=== PATIENT | female | born 1995 | race Caucasian/White ===

== ENCOUNTER 2024-11-25 20:22 | Emergency (ER) | payer OTHER, SELFPAY ==
--- OUTSIDE RECORDS SUMMARY | 2024-11-25 20:24 | XMS_ITS | Encounter Summary ---
Author Organization [facility] Address [address] [place] [address] Care Team Providers Care Cut Off Machine Helper Name Role Phone Zane Bower D.O. Primary Care Provider None, None M.D. Unavailable Unavailable Pcp, Relocated M.D. Primary Care Provider Brit amezquita Encounter Details Date Type Department Care Team (Late st Contact Info) Description 12/26/2015 Form Completion [facility] [address] [facility] [address] [place], [place] [address] Lynnette Bruner, N.P. [address] [facility] [address] [place], [place] [id number] Social History Tobacco Use Types Packs/Day Years Used Date Smoking Tobacco: Former Cigarettes 0.2 1 Alcohol Use Standard Drinks/Week Comments Yes 0.8 (1 standard drink = 0.6 oz p ure alcohol) occ Comments No Sex and Gender Information Value Date Recorded Sex Assigned at Not on file Legal Sex Female 5:03 AM CDT Gender Identity Not on file Sexual Orientation Not on file documented as of this encounter Functional Status * Is patient deaf or have serious difficulty hearing? Answer Date of Assessment Author Status No 11/18/2015 12:00 AM Broderick Summers Active * Is patient blind or have serious difficulty seeing, even when wearing glasses? Answer Date of Assessment Author Status No 11/18/2015 12:00 AM Broderick Summers Active * Does patient have difficulty walking or climbing stairs? Answer Date of Assessment Author Status No 11/18/2015 12:00 AM Broderick Summers Active * Does patient have difficulty dressing or bathing? Answer Date of Assessment Author Status No 11/18/2015 12:00 AM Broderick Summers Active * Does patient have difficulty doing errands alone? Answer Date of Assessment Author Status No 11/18/2015 12:00 AM Broderick Summers Active documented as of this encounter Mental Status * Does patient have serious difficulty concentrating, remembering, or making decisions? Answer Entry Date Author Status No 11/18/2015 12:00 AM Broderick Summers Active documented in this encounter Plan of Treatment Not on file documented as of this encounter Visit Diagnoses Not on filedocumented in this encounter Care Teams Cut Off Machine Helper Relationship Specialty Start Date End Date Zane Bower D.O. PCP - General Family Medicine 10/04/15 06/09/17 Kamaljit Casillas M.D. PCP - General 06/10/17 None, Yolanda Dietrich 08/21/15 documented as of this encounter
--- OUTSIDE RECORDS SUMMARY | 2024-11-25 20:24 | XMS_ITS | Encounter Summary ---
Author Organization [facility] Address [address] [place] [address] Care Team Providers Care Lgsw Name Role Phone Leslee Stacy PA-C Unavailable Glendy Perry MD Unavailable Eli Marinelli MD Primary Care Provider [phone] Reason for Visit * Reason Comments Follow up Encounter Details Date Type Department Care Team (Late st Contact Info) Description 11/19/2024 3:00 PM DRYCLEANER Office Visit [facility] [address] [phone] Glendy Perry MD [address] [place] [id number] Multiple sclerosis (HCC) (Primary Dx) Social History Tobacco Use Types Packs/Day Years Used Date Smoking Tobacco: Some Days Cigarettes 0.3 9 Started: 013; Last attempted to quit: 11/10/2021 E - Cigarettes Smokeless Tobacco: Never Tobacco Cessation:Ready to Q uit: Yes; Counseling Given: Yes Alcohol Use Standard Drinks/Week Comments Yes 1 (1 standard drink = 0.6 oz pur e alcohol) Comments Unknown Sex and Gender Information Value Date Recorded Sex Assigned at Female 11/30/2021 10:02 AM DRYCLEANER Legal Sex Female 9:11 AM DRYCLEANER Gender Identity Female 11/30/2021 10:02 AM DRYCLEANER Sexual Orientation Straight 11/30/2021 10 :02 AM DRYCLEANER documented as of this encounter Last Filed Vital Signs Vital Sign Reading Time Taken Comments Blood Pressure 96/61 11/19/2024 3:09 PM DRYCLEANER Pulse 76 11/19/2024 3:09 PM DRYCLEANER Temperature - - Respiratory Rate - - Oxygen Saturation - - Inhaled Oxygen Concentration - - Weight - - Height - - Body Mass Index - - documented in this encounter Patient Instructions * Patient Instructions* Glendy Perry MD - 11/19/2024 3:00 PM DRYCLEANER .Follow up: Keep January New Medications/changes: Stop Lyrica - decrease by 75mg every 3 days Hold Migraine meds Okay to continue cyclobenzaprine and Cymbalta for now - ask Ob - Referrals: Breast feeding data handout https://www.ncbi.nlm.nih.gov/books/REP019524/pdf/Bookshelf_NBK500903.pdf Other Recommendations: Regular exercise and healthy diet are important and recommended for MS patients. Please keep up on your routine preventative care with your primary care physician including cancer screenings and vaccinations. While vaccination is recommended it is not required. MS patients shouldnot received live vaccines. Cigarette smoking is known to worsen disease course/outcomes of MS and can increase your risk of relapse. If you do smoke, please consider quitting/reducing use. LEANER documented in this encounter Progress Notes * Glendy Perry MD - 11/19/2024 3:00 PM CST In the interval since her last visit, labs completed 07/07/24. Infused with Ocrevus 07/24/24, tolerated well. MRI B/C/T completed 08/21/24, MS stable. Followed with [facility] 10/23/24 for evalof cough and sinus problem, advised bronchitis, given doxycycline, flonase, tessalon, albuterol, nebulizer treatment, codeine, and dexamethasone to treat infection. Sent portal ms 11/17/23 to report positive home test, thought to be from abx given for bronchitis, advised visit to discuss, per Dr. Perry pt could decrease Lyrica dose by 75 mg over days leading up to office visit. Advised speak to PCP/OBGYN. Today, would like to discuss . Reports has not seen PCP/Ob just positivehome tests. Was most concerned about her MS. Was taking Lyrica total 225 ( 75 at dinner and 150 at night) has decreased by 75mg since phone call. Reports no new concerns related to MS. Chronic Symptoms Memory - Some short term memory concerns. Prior Concerta but side effects of jitteriness/decreased appetite Mood - Anxiety and depression. Vision - Still impaired vision in right eye (very blurry) since diagnosis. Weakness/Mobility - Feels walking is unlimited. Intermittent right leg weakness. Pain/Abnormal Sensations - Numbness/tingling in hands and feet. Numbness in legs at night. Entire right leg numbness that fluctuates during the day and with activity (worse with prolonged standing). Fatigue/Energy - Fatigue throughout the day. Difficulty falling asleep. Bladder - No concerns Bowel - No concerns Other Headaches/migraines - Her headaches are unilateral with associated nausea, photophobia and phonophobia. At baseline, has chronic daily headache with 4-5 more severe headaches a month. Unable to use triptans (patient tried Sumatriptan once and collapsed, has history of mirna parkinson white syndrome). Has tried Topamax but was not effective (was on 75mg daily) and nortriptyline but had side effects of emotional lability. Historically would take Prednisone 50mg for 4 days when she would get a badheadache - was needing this about once a month. 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 Lastevaluated by Cardiology in 2016. Right knee pain and ankle pain - was evaluated by rheumatology. Hx of seizures - Triggered by exhaustion and stress. Now well controlled with controlling triggers.Uses cannabis with improvement. No longer on medications, stopped at age 21. First seizure at age 12. Patients states much better controlled now. In late teens/early twenties got more seizures but was also using drugs/alcohol and not controlling triggers. Patient aware of [place] Law to not drive for 90days following a seizure. Reports for the past several years seizures always occur at bedtime and can tell when she is going to get one (due to not controlling triggers). WATSON EVENTS IN DISEASE HISTORY - with youngest son. Was having siatica and vision changes/blurry vision and needed to start wearing glasses. 08/2015 - Presented to [facility] ED 08/21/15 for severe headache with light and sound sensitivity, tunnel vision/vision changes admitted for further evaluation, head CT done 08/21/15, normal. Started initially on Rocephin and Doxycycline, CSF done 08/21/15 with Glucose 51, Protein 46 (H) and Lyme neg, Abx were stopped. Was given Toradol and Percocet for pain and Toradol wad discontinued due to neutropenia, mild thrombocytopenia and anemia and restarted after CBC count improved. Due to headache persisting suspected post LP MITCHELL, patient refused blood patch. Believed to have aseptic meningitis, wasdischarged 08/24/15. 09/2015 - Presented to ED 09/26/15 for headache with near syncopal episode at work, as well as paresthesias in her upper extremities, head CT done 09/26/15, normal. Admitted to hospital. Brain MRI done 09/27/15 showing enhancing 6 mm lesion abutting the left lateral ventricle, most likely representing a demyelinating process, labs were negative, patient was advised to follow with outpatient neurology. 10/2015 - Consulted with Dr. Elsy Burr 10/12/15 for eval of neurological sxs, MRI done 10/13/15, showing dextrocurature of the thoracic spine, otherwise unremarkable. A second CSF was done 10/18/15 with IgG index 0.59 and 8 oligoclonal bands. Followed with HIGINIO Bruner 11/01/15 reporting ongoing f rontal daily headaches, right arm paresthesia and right leg cramping with gait dysfunction. Diagnosed with MS. Started on 3 days of IV steroids with prednisone taper. 11/2015 - Followed with HIGINIO Bruner 12/06/15 reported no change in ongoing sxs. Did try Aubagio and Tecfidera (for about 5 days each) but had severe nausea/vomiting. After having side effects, discontinued DMT and chose to observe. 2015 - 2018 - Did follow up yearly. Had ongoing fatigue and migraines/headaches. 12/2018 - Consulted with Dr. Carlos A Wallace 12/17/18 for MS eval. At time of visit reported fatigue and daily headaches, started on nortriptyline showing no improvement. Also reported urinary urgency.MRI done 12/22/18 showing 20 new brain lesions, at least 7 showing enhancement, cervical and thoracic spine remain normal. Followed with Dr. Wallace 12/28/18, discussed DMT, migraine preventative waschanged to Topaxmax, with no improvement. Started on Adderall for fatigue. 01/2019 - Started on Copaxone TIW. End of 2018 - Woke up and right leg was numb and weak. Received IV steroids. Symptoms improved. Still has some residual numbness. 02/2020 - MRI done 02/15/20 showing 1 new nonenhancing brain lesion within the right frontal subcortical white matter, cervical and thoracic spine remain normal. Followed with Dr. Wallace 02/22/20, reported fatigue, and some arm and leg weakness. Continued on Copaxone. 02/2021 - MRI done 03/03/21 showing 1 new nonenhancing brain lesion in the right superior frontal gyrus. Followed with Carrie Schroeder [facility] 03/09/21, continued on Copaxone. 11/2021 - Presented to [facility] ED 11/24/21 after testing positive for COVID with bilateral pulmonary embolisms with right heart strain discharged 11/26/21 with Xaralto. Presented to [facility] ED 11/30/21 forchest pain and SOB, reported bloody sputum when coughing, CT done showing clot burden has decreased, with increased bilateral pulmonary effusions. Discharged same day. 12/2021 - MRIs with new lesion on brain - started Tysabri - 03/2022 but concerns for side effects with infusions with nausea prior to infusions. Changed to Ocrevus 06/2022. MRis brain stable 09/2022 LABS 07/07/24 - B cells 0 (L). CBC w/ diff wnl. LFT wnl. Immunoglobulins wnl. 01/03/24 -. B cells 0 (L). CBC w/ diff w/ MCHC 31.2 (L). LFT w/ Alk Phos 37 (L). Immunoglobulins wnl. Vit D 33. 01/02/2024 - Ferritin 11 (L) 07/25/23 - [facility] - TSH 1.24. HIV 1/2 Ag/Ab nonreactive. HCV Ab nonreactive. 07/11/23 - [facility] - CBC w/ diff wnl. B cells 0 (L). LFT w/ Alk Phos 34 (L). Immunoglobulins wnl. 01/14/23 - [facility] - B cells 2 (L). CBC w/ diff wnl. LFT w/ Alk Phos 33 (L). Immunoglobulins wnl. 06/22/22 - Hep B Core Ab neg. Hep B Surface Ab nonreactive. Immunoglobulins wnl. HBsAg neg. 05/11/22 - CBC w/diff wnl, LFT with alk phos 40 03/23/22 - [facility] - CBC w/ diff w/ Hemoglobin 11.1 (L), MCHC 31.4 (L). Comp w/ Alk Phos 40 (L). 12/08/2021 - Immunoglobulins - IgM 241, (H), IgA 383 (H), Hep b core neg, Hep B surface ab neg, Hep B surface ag neg, Hep C neg, VZV immune, CBC with diff with elevated platelets 11/30/21 - [facility] - CBC w/ Hemoglobin 11.8 (L). BMP w/ BUN 6 (L). 08/26/21 - [facility] - CBC w/ diff w/ WBC 2.1 (L), Abs Lymph 1.0. Comp w/ Glucose 117 (H), Alk Phos 45(L). CRP 0.35. JCV Hx 05/16/22 - JCV neg 0.18 From Diagnosis/[facility] 12/17/18 - [facility] - Comp wnl. CBC w/ diff wnl. Lyme <0.9 neg. ALICE positive w/ titer 1:80 (H). DsDNAAb 1 neg. MASTER Ab neg. Sjogren's Ab neg. TSH 0.85. Vit B12 1919 (H). Vit D 56. NMO neg. 10/18/15 [facility] - CSF - WBC 3. RBC 2 (H). Glucose 53. Protein 21. IgG index 0.59. Oligoclonal bands8. Yazmin Salcedo not detected. Cytomegalovirus not detected. HSV not detected. VZV not detected. 10/13/15 - [facility] - Eastern Equine Enceph Ab 1.07 neg. [place] Encephalitis Ab 0.86 neg. West NileVirus neg. Marvin Encephalitis neg. JCV 0.10 neg. 08/21/15 - [facility] - CBC w/ diff w/ Abs Lymph 0.8 (L). Comp w/ Anion Gap 20.7 (H), Glucose 104 (H). 08/21/15 [facility] - CSF - WBC 7 (H). RBC 13 (H). Glucose 51. Protein 46 (H). Lyme neg. Gram neg. Culture no growth. IMAGING 08/21/24 MRI BRAIN [facility] CON COMPARISON: MRI 08/16/2023 Impression Findings compatible with intracranial demyelination given clinical diagnosis of multiple sclerosis.No evidence of interval disease activity. 1. T2 lesion burden: Mild, stable. 2. T1 lesion burden: Minimal, stable. 3. Lesion enhancement: None. 4. Volume loss: None. MRI SPINE CERVICAL [facility] CON COMPARISON: MRI 08/16/2023 Impression Normal appearance of the cervical spinal cord, no interval change. MRI SPINE THORACIC [facility] CON COMPARISON: MRI 08/16/2023 Impression Normal appearance of the thoracic spinal cord, no interval change. Report signed by Rodney Catherine MD 08/16/23 MRI BRAIN [facility] CON COMPARISON: 09/21/2022 Impression Scattered T2 hyperintense white matter lesions intracranially compatible with the provided diagnosis of multiple sclerosis, stable since the prior exam dated 09/21/2022. Observations include: 1. T2 Lesion [place]: Mild, stable. 2. T1 Lesion [place]: Minimal, stable. 3. Lesion Enhancement: None. 4. Parenchymal Loss: None. MRI SPINE CERVICAL [facility] CON COMPARISON: 12/20/2021. Impression 1. Normal cervical and upper thoracic spinal cord. Stable from the prior exam. MRI SPINE THORACIC [facility] CON COMPARISON: 12/20/2021 Impression 1. Normal thoracic spinal cord. Stable from the prior exam. 2. Mild thoracic spinal curvature without spondylosis or spinal stenosis. Stable. Signed by Magdy Goodwin M.D. 09/21/22 - MRI B stable MEDICATIONS Current Outpatient Medications: Medication Sig cholecalciferol, vitamin D3, 25 mcg, 1000 unit, 25 mcg (1,000 unit) oral tablet Take 2 tablets (50 mcg) by mouth once daily. cyclobenzaprine (FLEXERIL) 10 mg oral tablet Take 1 tablet (10 mg) by mouth at bedtime. diazePAM (VALIUM) 5 mg oral tablet Take one tablet 30 minutes prior to MRI. Take second tablet at time of MRI if needed. Will need a cdl truck driver. diazePAM (VALIUM) 5 mg oral tablet Take one tab 30 min prior to MRI and may take 2nd tab at time ofMRI if needed DULoxetine (CYMBALTA) 60 mg oral delayed release capsule Take 1 capsule by mouth once daily ferrous sulfate (FERATAB) 325 mg (65 mg iron) oral tablet Take 1 tablet (325 mg) by mouth once daily. fremanezumab-vfrm (One Kings LaneOVY AUTOINJECTOR) 225 mg/1.5 mL SubQ AtIn INJECT 1 PEN UNDER THE SKIN EVERY MONTH LORazepam (ATIVAN) 0.5 mg oral tablet Take 1 tablet (0.5 mg) by mouth at bedtime as needed. ondansetron (ZOFRAN) 8 mg oral ODT Dissolve 1 tablet (8 mg) in mouth every 12 (twelve) hours as needed. pregabalin (LYRICA) 25 mg oral capsule Take one capsule twice daily. May take one additional capsule as needed. Take in addition to the 75mg capsules. Max dose in 24 hours 300mg. pregabalin (LYRICA) 75 mg oral capsule TAKE 1 CAPSULE BY MOUTH THREE TIMES DAILY (Patient not taking: Reported on 11/19/2024) prochlorperazine (COMPAZINE) 10 mg oral tablet TAKE 1 TABLET BY MOUTH EVERY 6 HOURS NEEDED . DO NOT EXCEED 4 PER 24 HOURS ubrogepant 100 mg oral Tab Take one tab at onset of migraine. May repeat once after 2 hours as needed. 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 GENERAL EXAM General: Patient in no acute distress. Cardiovascular: Bilateral lower extremities with no edema. Distal pulses palpable. Respiratory: Breathing non labored. NEUROLOGICAL EXAM BP 96/61 Pulse 76 Mental Status: Alert and orientated. Able to provide detailed medical history. Language is fluent. Speech without dysarthria. Cranial Nerves: Extraocular movements are full without nystagmus. Pupils are equal round and reactive to light. (Deferred due to facemask - Face is symmetric with full sensation bilaterally. Tongue is midline and palate elevates symmetrically.) Shoulder shrug is 5/5 bilaterally. Neck flexion does not illicit abnormal sensation. Motor: Muscle bulk and tone are normal. Strength to confrontational testing is 5/5 in bilaterally upper and lower extremities both proximally and distally. Reflexes: Biceps 2/2, Brachioradialis 2/2, Patella 2/2 (no crossed adductor seen) Coordination: No dysmetria on finger nose finger testing, rapid alternating movements of normal speed and rhythm, fast finger tapping of normal speed and amplitude. Sensation: Intact to light touch in upper or lower extremities. Vibration at R knee <5 seconds. Intact at left great toe. Gait: Able to stand from seated position without assistance. Does not use walking aid. Able to walkon toes and heels. Able to walk in tandem without difficulty. 25 foot timed walk 5.73 seconds on 11/19/24 5.54 seconds on 07/07/24 4.72 seconds on 01/03/24 5.34 seconds on 09/21/22 5.77 seconds on 05/07/22 ASSESSMENT AND PLAN Primitivo Killian is a 29 y.o. female with history of MS diagnosed in 2014, on Ocrevus dosed in 06/2022 after nausea with Tysabri (completed 4 infusions total). Was started on Tysabri due to progression onMRIs while on Copaxone. Was on Copaxone from 2018 - 2021 but with new lesions in 02/2020, 02/2021, and 12/2021. Prior failures of Aubagio and Tecfidera as was not able to tolerate medications and discontinued after a few days. Today, reports overall Ms disease process stable but now with new pregnancywith positive home test and visit made to discuss implications for Ms. Exam stable. We discussed the following: MS - On Ocrevus. Last dose 07/24/2024, next due 01/2025 ( but will plan to hold for . Receives standard pre-medications. Given multiple side effects to other medications will keep slower infusion rate. Could consider faster infusion rate in the future. MRI B/C/T stable 08/2023, and now 08/2024 with normal C/T imaging. Labs 06/2024 reassuring. Now with positive test. Review Ocrevus/ and formal FDA label to wait 6 months for , However, many MS centers based off drug clearance/placental formation data are allowingpatients to conceive without wait period post dosing and recommend not to be at time of medication exposure. Reviewed given her timing of and 1/2 life of med likely fetus had no exposure. Would still recommend B cell testing of after . Discussed and MS. Reviewed that itself is relatively immune protective with a higher risk of relapse . Reviewed future DMT plans and could consider bridging with Copaxone during /trend B cells. Discussed on Ocrevus. Discussed limited data and have reviewed available information in detail and provided handout. Discussed breast feeding post Ocrevus is outside the label of the medication and is aware of potential risks and still only being done in limited basis. But option to dose Ocrevus post delivery and breast feed. Plan f/u to review further after Ob visit. Immunocompromised - Discussed immunocompromised status due to B cell depletion from the Ocrevus. Discussed increased risk of infections and decreased vaccine response. Has declined the COVID vaccine.Encouraged Shingrix and pneumonia early D84.821 - immunocompromised due to drug. Reviewed Pemgarda and defer due to Vitamin D goal 60-80. -continue to trend Symptoms Leg numbness/nerve pain - On Cymbalta and Lyrica. Using cyclobenzaprine PRN. Prior failure of GPN due to fatigue and limited benefit. Reviewed meds and safety with - largest concern with Lyrica - started taper - continue towean by 75 mg every 3 days until off, Using cyclobenzaprine rarely reviewed data - and will review with Ob, Okay to continue cymbalta and encouraged discuss with Ob Depression/Fatigue - Continue Cymbalta. Prior failures of Concerta and Wellbutrin due to side effects (jittery, suppressed appetite). - see above encouraged to review med with ob Migraines -reviewed data with meds/ - hold Ajovy/Ubrelvy during - in future pending headaches may need to consider other options during - will also review with Ob Has tried and failed Nortriptyline (side effects) and Topamax (no benefit). Unable to use triptans given hx of mirna parkinson white syndrome (tried once before and caused her to collapsed). 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 Not on medication. Previously followed with Cardiology. Hx of seizures - Onset in childhood. Well controlled in recent years with controlling triggers (lack of sleep, stress). Has not been on medications sine at least 2016 or so. In late teens/early twenties got more seizures but was also using drugs/alcohol and not controlling triggers Ferritin -low - with restless legs - encouraged to review it PCP and discuss iron supplementaion Follow up: Keep prior visit I spent 43 minutes on the date of the encounter with this patient consisting of activities before, during and after the encounter including time spent: Preparing to see the patient including review of the chart, tests, and/or outside records. Reviewing and verifying information regarding the chief complaint and history already recorded by ancillary staff and/or the patient. Obtaining history and performing medically appropriate evaluation. Counseling the patient regarding the diagnosis, additional diagnostic considerations, possible diagnostic testing, and any potential options for therapy, including conservative/lifestyle measures and pharmacotherapy including risks/benefits, side effects and adverse effects. I also counseled the patient on how to contact me with any questions or concerns, new or worsening symptoms. Ordering medications, tests, and/or procedures, and documenting the chart. I am the single focal point of care for a condition that requires longitudinal relationship and personalized care for condition ( Multiple sclerosis) as specific within this medical record LEANER documented in this encounter Plan of Treatment Not on file documented as of this encounter Visit Diagnoses Diagnosis Multiple sclerosis (HCC)- Primary Multiple sclerosis documented in this encounter Care Teams Lgsw Relationship Specialty Start Date End Date Eli Marinelli MD [address] [place] [id number] PCP - General 10/15/23 Leslee Stacy PA-C Physician High School Counselor Neurology 12/08/21 Glendy Perry MD Physician High School Counselor Neurology 12/08/21 documented as of this encounter
--- OUTSIDE RECORDS SUMMARY | 2024-11-25 20:24 | XMS_ITS | Referral Summary ---
Author Organization [facility] Address [address] [place] [address] Care Team Providers Care Family Practice Nurse Practitioner Name Role Phone Leslee Stacy PA-C Unavailable Glendy Perry MD Unavailable Eli Marinelli MD Primary Care Provider [phone] Encounters Date Type Department Care Team Description 11/19/2024 3:00 PM FELTMAKER Office Visit [facility] [address] [phone] Glendy Perry MD Multiple sclerosis (HCC) (Primary Dx) from Last 3 Months Allergies Active Allergy Reactions Criticality Noted Date Comments Penicillin Rash 11/30/1994 Tree Nuts 12/01/2021 Medications cholecalciferol , vitamin D3, 25 mcg, 1000 unit, 25 mcg (1,000 unit) oral tablet Take 2 tablets (50 mcg) by mouth once daily. Active XULANE 150-35 mcg/24 hr TD weekly patch 12/13/19 23 Active prochlorperazin e (COMPAZINE) 10 mg oral tablet TAKE 1 TABLET BY MOUTH EVERY 6 HOURS NEEDED . DO NOT EXCEED 4 PER 24 HOURS 30 tablet 01/01/20 23 Active LORazepam (ATIVAN) 0.5 mg oral tabletIndicatio ns:Multiple sclerosis (HCC) Take 1 tablet (0.5 mg) by mouth at bedtime as needed. 15 tablet 04/03/20 23 Active diazePAM (VALIUM) 5 mg oral tabletIndicatio ns:Claustrophob ia Take one tablet 30 minutes prior to MRI. Take second tablet at time of MRI if needed. Will need a chain saw driver. 2 tablet 06/07/20 23 Active ondansetron (ZOFRAN) 8 mg oral ODT Dissolve 1 tablet (8 mg) in mouth every 12 (twelve) hours as needed. 14 tablet 3 10/15/20 23 Active ferrous sulfate (FERATAB) 325 mg (65 mg iron) oral tablet Take 1 tablet (325 mg) by mouth once daily. Active cyclobenzaprine (FLEXERIL) 10 mg oral tabletIndicatio ns:Multiple sclerosis (HCC),Spasticit y Take 1 tablet (10 mg) by mouth at bedtime. 30 tablet 5 07/07/20 24 Active ubrogepant 100 mg oral TabIndications: Chronic migraine without aura with status migrainosus, not intractable Take one tab at onset of migraine. May repeat once after 2 hours as needed. Max dose 200mg/day 10 tablet 11 07/07/20 24 Active fremanezumab-vf rm (InadcoOVice AUTOINJECTOR) 225 mg/1.5 mL SubQ AtInIndications :Chronic migraine without aura with status migrainosus, not intractable INJECT 1 PEN UNDER THE SKIN EVERY MONTH 4.5 mL 3 07/07/20 24 Active diazePAM (VALIUM) 5 mg oral tablet Take one tab 30 min prior to MRI and may take 2nd tab at time of MRI if needed 2 tablet 07/07/20 24 Active pregabalin (LYRICA) 25 mg oral capsuleIndicati ons:Multiple sclerosis (HCC) Take one capsule twice daily. May take one additional capsule as needed. Take in addition to the 75mg capsules. Max dose in 24 hours 300mg. 180 capsule 3 07/30/20 24 Active DULoxetine (CYMBALTA) 60 mg oral delayed release capsule Take 1 capsule by mouth once daily 90 capsule 11/05/20 24 Active pregabalin (LYRICA) 75 mg oral capsuleIndicati ons:Multiple sclerosis (HCC) TAKE 1 CAPSULE BY MOUTH THREE TIMES DAILY 270 capsule 11/05/20 24 Active Additional Information Patient not taking.Reported on 11/19/2024 pregabalin (LYRICA) 75 mg oral capsuleIndicati ons:Multiple sclerosis (HCC) TAKE 1 CAPSULE BY MOUTH THREE TIMES DAILY 270 capsule 1 03/09/20 24 024 Discontinued DULoxetine (CYMBALTA) 60 mg oral delayed release capsule Take 1 capsule by mouth once daily 90 capsule 08/11/30 23 024 Discontinued Active Problems Problem Noted Date Diagnosed Date 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 was on medications for ? A year, then medications were stopped. No issues till 2014 when she had Syncope at work :felt heart pounding then passed out. Was evaluated at that time. Had EKG and echocardiogram But no cause found. No recurrence since then Discussed electrophysiology evaluation if she has recurrent symptoms of arrhythmia. Multiple sclerosis 05/07/2022 Acute pulmonary embolism without acute cor pulmo nale 11/25/2021 COVID-19 11/25/2021 History of pulmonary embolus (PE) 11/25/2021 Overview (07/07/2024): In setting of COVID-19. Had consult with hematology Dr. 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 Pre-syncope 09/26/2015 Immunizations Name Administration Dates Next Due DTP/HIB 1995,1995 Polio IPV 1995,1995 Polio OPV 1995,1995 Social History Tobacco Use Types Packs/Day Years [...] Sex Assigned at Female 11/30/2021 10:02 AM FELTMAKER Legal Sex Female 9:11 AM FELTMAKER Gender Identity Female 11/30/2021 10:02 AM FELTMAKER Sexual Orientation Straight 11/30/2021 10 :02 AM FELTMAKER Last Filed Vital Signs Vital Sign Reading Time Taken Comments Blood Pressure 96/61 11/19/2024 3:09 PM FELTMAKER Pulse 76 11/19/2024 3:09 PM FELTMAKER Temperature 36.2 C (97.1 F) 07/24/2024 2:11 PM CDT Respiratory Rate 16 07/24/2024 2:11 PM CDT Oxygen Saturation 99% 07/24/2024 2:11 PM CDT Inhaled Oxygen Concentration - - Weight 54.9 kg (121 lb) 07/07/2024 4:02 PM CDT Height 185.4 cm (6' 1) 07/07/2024 4:02 PM CDT Body Mass Index 15.96 07/07/2024 4:02 PM CDT Plan of Treatment Not on file Procedures Procedure Name Priority Date/Time Associated Diagnosis Comments HCV ANTIBODY ([facility]) Routine 12/08/2021 1:57 PM FELTMAKER Drug therapy from Last 3 Months or Most Recently Relevant to Health Maintenance Results * HCV ANTIBODY ([facility]) (12/08/2021 1:57 PM FELTMAKER) Hepatitis C Virus Antibody ([facility]) <0.1 0.0 - 0.9 s/co ratio [facility] 1 Comment: Negative: < 0.8 Indeterminate: 0.8 - 0.9 Positive: > 0.9 The CDC recommends that a positive HCV antibody result be followed up with a HCV Nucleic Acid Amplification test (504911). Blood 12/08/2021 1:57 PM FELTMAKER 12/07/2021 11:00 PM FELTMAKER Narrative [facility] 1 - 12/11/2021 7:07 PM FELTMAKER Performed at: - [facility] [address] [place] [id number] Mold Breaker: Luis Alfredo Tabor MD, Phone: [phone] us Glendy Perry MD [facility] ORDERABLES Final Resu lt [facility] 1 from Last 3 Months or Most Recently Relevant to Health Maintenance Insurance [employer] Member Subscriber Plan / Payer (Ef fective 2024-Present) Name:Primitivo Killian Relation to Subscriber:Self Name:Primitivo Killian Payer ID:Not on file Group ID:[id number] Type:Non-Contract Address: [place] [id number] [employer] Care Teams Family Practice Nurse Practitioner Relationship Specialty Start Date End Date Eli Marinelli MD [address] [place] [address] VAHID LARSON [id number] PCP - General 10/15/23 Leslee Stacy PA-C Physician Charge Lpn Neurology 12/08/21 Glendy Perry MD Physician Charge Lpn Neurology 12/08/21
--- OUTSIDE RECORDS SUMMARY | 2024-11-25 20:24 | XMS_ITS | Clinical Summary ---
Author Organization [facility] Address [address] [place] [address] Care Team Providers Care Counselor Dormitory Name Role Phone Leslee Stacy PA-C Unavailable Glendy Perry MD Unavailable Eli Marinelli MD Primary Care Provider [phone] Allergies Active Allergy Reactions Criticality Noted Date [...] of MRI if needed. Will need a regional truck driver. 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 was on medications for ? 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 Pre-syncope 09/26/2015 Encounters Date Type Department Care Team Description 11/19/2024 3:00 PM TRANSITIONAL KINDERGARTEN TEACHER Office Visit [facility] [address] [phone] Glendy Perry MD Multiple sclerosis (HCC) (Primary Dx) from Last 3 Months Immunizations Name Administration Dates Next Due DTP/HIB 1995,1995 Polio IPV 1995,1995 Polio OPV 1995,1995 Family History Medical History Relation Comments Alcohol Abuse Father Drug Abuse Father Colon Cancer Maternal Grandfather Alzheimer's Disease Maternal Grandmother Alcohol Abuse Mother Allergies Mother Depression Mother Relation Status Comments Father Maternal Grandfather Maternal Grandmother Mother Social History Tobacco Use Types Packs/Day Years [...] Sex Assigned at Female 11/30/2021 10:02 AM TRANSITIONAL KINDERGARTEN TEACHER Legal Sex Female 9:11 AM TRANSITIONAL KINDERGARTEN TEACHER Gender Identity Female 11/30/2021 10:02 AM TRANSITIONAL KINDERGARTEN TEACHER Sexual Orientation Straight 11/30/2021 10 :02 AM TRANSITIONAL KINDERGARTEN TEACHER Last Filed Vital Signs Vital Sign Reading Time Taken Comments Blood Pressure 96/61 11/19/2024 3:09 PM TRANSITIONAL KINDERGARTEN TEACHER Pulse 76 11/19/2024 3:09 PM TRANSITIONAL KINDERGARTEN TEACHER Temperature 36.2 C (97.1 F) 07/24/2024 2:11 PM CDT Respiratory Rate 16 07/24/2024 2:11 PM CDT Oxygen Saturation 99% 07/24/2024 2:11 PM CDT Inhaled Oxygen Concentration - - Weight 54.9 kg (121 lb) 07/07/2024 4:02 PM CDT Height 185.4 cm (6' 1) 07/07/2024 4:02 PM CDT Body Mass Index 15.96 07/07/2024 4:02 PM CDT Plan of Treatment Health Maintenance Due Date Last Done Comments Pap Smear 1995 Anxiety Screening (ARUN-2) 1996 Depression Assessment (PHQ-2) 1996 Pneumococcal <65 (1 of 2 - PCV) 2001 Adult Tetanus Booster 2014 COVID-19 Vaccine ( - season) 2024 Influenza Vaccine (#1) 2024 RSV Vaccines (1 - 1-dose 75+ series) 2070 Hepatitis C Screening Completed 07/25/2023, 022 Procedures Procedure Name Priority Date/Time Associated Diagnosis Comments HCV ANTIBODY ([facility]) Routine 12/08/2021 1:57 PM TRANSITIONAL KINDERGARTEN TEACHER Drug therapy from Last 3 Months or Most Recently Relevant to Health Maintenance Results * HCV ANTIBODY ([facility]) (12/08/2021 1:57 PM TRANSITIONAL KINDERGARTEN TEACHER) Hepatitis C Virus Antibody ([facility]) <0.1 0.0 - 0.9 s/co ratio [facility] 1 Comment: Negative: < 0.8 Indeterminate: 0.8 - 0.9 Positive: > 0.9 The CDC recommends that a positive HCV antibody result be followed up with a HCV Nucleic Acid Amplification test ([id number]). Blood 12/08/2021 1:57 PM TRANSITIONAL KINDERGARTEN TEACHER 12/07/2021 11:00 PM TRANSITIONAL KINDERGARTEN TEACHER Narrative [facility] 1 - 12/11/2021 7:07 PM TRANSITIONAL KINDERGARTEN TEACHER Performed at: - [facility] [place] [id number] [place], [place] [id number] Car Sander: Luis Alfredo Tabor MD, Phone: [phone] Glendy Perry MD [facility] ORDERABLES Final Resu lt [facility] 1 from Last 3 Months or Most Recently Relevant to Health Maintenance Insurance [employer] EngagementHealth Care Teams Counselor Dormitory Relationship Specialty Start Date End Date Eli Marinelli MD [address] [facility] [place] [address] PCP - General 10/15/23 Leslee Stacy PA-C Physician Industrial Yard Brake Coupler Neurology 12/08/21 Glendy Perry MD Physician Industrial Yard Brake Coupler Neurology 12/08/21
--- OUTSIDE RECORDS SUMMARY | 2024-11-25 20:24 | XMS_ITS | Clinical Summary ---
Author Organization [facility] Address [place], [place] [address] Care Team Providers Care Finish Sander Name Role Phone Eli Marinelli MD Primary Care P rovider Allergies Active Allergy Reactions Criticality Noted Date Comments Penicillins Rash High 03/31/2019 Tree Nuts Contact Dermatitis,Edema 10/18/2015 Mouth and lips swelling Medications cholecalciferol, Vitamin D3, 2,000 unit tablet Take 2,000 units by mouth at bedtime. 02/21/20 21 Active ondansetron (ZOFRAN ODT) [address] 8 mg on the tongue every 8 hours if needed for Nausea/Vomiting . Active fremanezumab-vfrm (Ajovy Autoinjector) 225 mg/1.5 mL atIn Inject 225 mg subcutaneous. 01/03/20 22 Active ferrous sulfate, 65 mg elemental, tablet Take 325 mg by mouth once daily with a meal. Active LORazepam (ATIVAN) 0.5 mg tab Take 0.5 mg by mouth at bedtime if needed. 04/03/20 23 Active ocrelizumab (Ocrevus) 30 mg/mL injectionIndicatio ns:MS (multiple sclerosis) (HC) Inject 20 mL (600 mg) intravenous EVERY 6 MONTHS. 0 07/25/20 23 Active Ubrelvy 100 mg tab tabletIndications: Migraine without aura and without status migrainosus, not intractable Take 1 Tablet (100 mg) by mouth one time if needed for Migraine. 0 07/25/20 23 Active pregabalin (LYRICA) 75 mg capsuleIndications :Nerve pain Take 1 Capsule (75 mg) by mouth at bedtime. 0 07/25/20 Active pregabalin (LYRICA) 25 mg capsuleIndications :Nerve pain Take 2 Capsules (50 mg) by mouth two times daily. 0 07/25/20 Active DULoxetine (CYMBALTA) 20 mg Delayed-release capsuleIndications :Neuropathic pain,Anxiety Take 3 Capsules (60 mg) by mouth once daily. 0 07/25/20 Active rimegepant (NURTEC) 75 mg orally disintegrating tablet Take one tablet at onset of migraine. Max of 75 mg in 24 hours 10/17/20 Active cyclobenzaprine (FLEXERIL) 10 mg tablet Take 10 mg by mouth. 01/03/20 Active codeine-guaiFENesi n 10-100 mg/5 mL liquidIndications: Rhinosinusitis Take 10 mL by mouth at bedtime. For cough 70 mL 02/21/20 Active Xulane 150-35 mcg/24 hr patchIndications:E ncounter for contraceptive management, unspecified type Apply 1 Patch on dry, clean, hairless skin once weekly. 13 Patch 08/03/20 Active fluticasone (50 mcg per actuation) nasal solution (FLONASE)Indicatio ns:Nasal congestion Inhale 2 Sprays in both nostrils once daily. 16 g 10/23/20 24 Active benzonatate (TESSALON) 200 mg capsuleIndications :Cough, unspecified type Take 1 Capsule (200 mg) by mouth 3 times daily if needed for Cough. 21 Capsule 10/23/20 Active albuterol HFA (Ventolin HFA) 90 mcg/actuation inhalerIndications :Cough, unspecified type Inhale 2 Puffs by mouth 4 times daily if needed for Shortness Of Breath or Wheezing. 1 Each 10/23/20 Active codeine-guaiFENesi n 10-100 mg/5 mL liquidIndications: Cough, unspecified type Take 5-10 mL by mouth at bedtime if needed for Cough. Max dose 60 mL per 24 hrs. 120 mL 10/23/20 Active doxycycline hyclate 100 mg capsuleIndications :Acute sinusitis with symptoms > 10 days,Acute bronchitis with symptoms > 10 days Take 1 Capsule (100 mg) by mouth two times daily for 10 days. 20 Capsule 10/23/20 24 024 Active Problems Problem Noted Date Diagnosed Date WPW (Jrzxj-Genqetyle-Twvsp syndrome) 07/25/2023 Overview (07/29/2023): Has seen cardiology Notes from visit with Cards Dec 01, 2021 diagnosed with CEIF-KRCFPCSVO-BHGJN SYNDROME syndrome. was on medications for ? A year, then medications were stopped. No issues till 2014 when she had Syncope at work :felt heart pounding then passed out. Was evaluated at that time. Had EKG and echocardiogram But no cause found. No recurrence since then Discussed electrophysiology evaluation if she has recurrent symptoms of arrhythmia. Pap smear for cervical cancer screening 07/12/20 Overview (08/05/2023): 07/2023 NIL/HPV negative. Plan: Pap/HPV due 07/2028. History of pulmonary embolus (PE) 11/25/2021 Overview (07/25/2023): In setting of COVID-19. Had consult with hematology Dr. Girard and did not test positive for , so ok to stay on control unless has another PE/DVT Encounter for surveillance o f transdermal patch hormonal contraceptive device 05/22/2021 MS (multiple sclerosis) 05/22/2021 Overview (07/25/2023): With current medications, cannot take any vaccines Migraine without aura and without status migrain osus Comments Yes Resolved Problems Problem Noted Date Diagnosed Date Resolved Date COVID-19 11/25/2021 07/25/2023 Vitamin D deficiency 05/22/2021 023 Encounters Date Type Department Care Team Description 11/25/2024 6:40 PM CAREER DEVELOPMENT CONSULTANT Office Visit [facility] [address] [place] [phone] Diana Jordan NP Cough (Coughing until vomiting) 11/25/2024 Travel 10/23/2024 10:05 AM CAREER DEVELOPMENT CONSULTANT Office Visit [facility] [address] [facility] [address] [place] [address] Yumiko Ellis MD Sinus Problem; Cough (Started about a week ago.) 10/23/2024 Travel from Last 3 Months Immunizations Name Administration Dates Next Due DTP-HIB 1995,1995 Inactivated Polio Vaccine 1995,1995 Family History Medical History Relation Name Comments No Known Problems Father Hypothyroidism Mother Relation Name Status Comments Father Mother Social History Tobacco Use Types Packs/Day Years Used Date Smoking Tobacco: Former Cigarettes Smokeless Tobacco: Never Comments:1-5 cigs/day Alcohol Use Standard Drinks/Week Comments Not Currently 2 (1 standard drink = 0.6 oz pur e alcohol) PHQ-2 Answer Date Recorded PHQ-2 TOTAL SCORE 1 07/25/2023 Social Connections Answer Date Recorded Do you often feel lonely or isolated from those around you? 0 10/23/2024 Financial Resource Strain Answer Date R ecorded Difficulty of Paying Living Expenses 3 10/23/2024 Difficulty of Paying Living Expenses Not on file 10/23/2024 Food Insecurity Answer Date Recorded Do you worry your food will run out before you are able to buy more? 1 10/23/2024 Transportation Needs Answer Date Record ed Does lack of transportation keep you from medica l appointments? 1 10/23/2024 Does lack of transportation keep you from work, meetings or getting things that you need? 1 10/23/2024 Housing Stability Answer Date Recorded What is your housing situation today? 1 10/23/2024 Utilities Answer Date Recorded Do you have trouble paying f or utilities (for example, heat, electricity, water, phone)? 1 10/23/2024 Comments Yes Sex and Gender Information Value Date Recorded Sex Assigned at Female 11/30/2021 12:52 PM CAREER DEVELOPMENT CONSULTANT Legal Sex Female 2:52 PM CDT Gender Identity Female 11/30/2021 12:52 PM CAREER DEVELOPMENT CONSULTANT Sexual Orientation Straight 11/30/2021 12 :52 PM CAREER DEVELOPMENT CONSULTANT Obstetrics History Para Term AB IAB SAB Ectopic Multiple Livin g Live Births 1 Date Outcome GA Total Labor Labor/2nd/3rd Weight Sex Type Anes PTL Lina A1 A5 Name Clin Current Last Filed Vital Signs Vital Sign Reading Time Taken Comments Blood Pressure 139/90 11/25/2024 7:39 PM CAREER DEVELOPMENT CONSULTANT Pulse 108 11/25/2024 7:39 PM CAREER DEVELOPMENT CONSULTANT Temperature 37.8 C (100.1 F) 11/25/2024 7:39 PM CAREER DEVELOPMENT CONSULTANT Respiratory Rate 18 11/25/2024 7:39 PM CAREER DEVELOPMENT CONSULTANT Oxygen Saturation 100% 11/25/2024 7:39 PM CAREER DEVELOPMENT CONSULTANT Inhaled Oxygen Concentration - - Weight 71.2 kg (157 lb) 11/25/2024 7:39 PM CAREER DEVELOPMENT CONSULTANT Height 182.9 cm (6') 08/20/2023 8:21 AM CDT Body Mass Index 21.29 08/20/2023 8:21 AM CDT Plan of Treatment Upcoming Encounters Date Type Department Care Team (Late st Contact Info) Description 12/01/2024 9:35 AM CAREER DEVELOPMENT CONSULTANT Office Visit [facility] [address] [place] [phone] Richelle Kent MD [address] [place] [address] Health Maintenance Due Date Last Done Comments Tdap 2006 Pneumococcal series for age 6-49 (1 of 2 - PCV) 2014 Tetanus booster 2015 COVID-19 vaccine series ( - 2023- season) 2024 Influenza for age 9-49 07/12/2024 Depression screening for age 12+ 07/25/2024 07/25/20 23 BMI (ht and wt on same day) for age 18+ 08/20/2024 08/20/2023, 07/25/2023, 12/27/2021 Pap test for age 21-65 07/25/2028 , 07/25/2023, 03/31/2019 (Completed outside of [facility]) RSV vaccine for adults or pr egnancy (1 - 1-dose 75+ series) 2070 HIV for age 15-65 Completed 07/25/2023 Hepatitis C screening for age 18-79 Completed 07/25 Procedures Procedure Name Priority Date/Time Associated Diagnosis Comments HPV HIGH RISK Routine 07/25/2023 11:55 AM CDT Screening for cervical cancer ANTI HIV 1/2 Routine 07/25/2023 10:46 AM CDT Screening for HIV (human immunodeficiency virus) ANTI HCV Routine 07/25/2023 10:46 AM CDT Need for hepatitis C screening test from Last 3 Months or Most Recently Relevant to Health Maintenance Results * HPV HIGH RISK (07/25/2023 11:55 AM CDT) TYPE 16 Negative Negative 07/29/2023 1:53 PM CDT [facility] TYPE 18 Negative Negative 07/29/2023 1:53 PM CDT [facility] OTHER HIGH RISK TYPES Negative Negative 07/29/2023 1:53 PM CDT [facility] Other (Cervical) Non-Blood / Unknown 07/25/2023 11:55 AM CDT 07/26/2023 11:38 AM CDT Narrative [facility] - 07/29/2023 1:53 PM CDT HPV types 16, 18, 31, 33, 35, 39, 45, 51, 52, 56, 58, 59, 66 and 68 DNA were undetectable or below the pre-set threshold. Methodology: Sameer Dara 4800 HPV Test Eli Marinelli MD MICROBIOLOGY Final Result [facility] [address] [place] [address], * ANTI HCV (07/25/2023 10:46 AM CDT) HEPATITIS C ANTIBODY Non-Reacti ve Non-React ryne 07/26/2023 1:00 AM CDT [facility] Comment:Please note, per www .CDC.gov: If a patient is known to be at high risk of HCV infection, or is symptomatic, and the physician's suspicion of HCV infection is high, HCV RNA testing is often employed and is of diagnostic value, even after an initial negative anti-HCV test result. Blood BLOOD SPECIMEN / Unknown Venipuncture / Unknown 07/25/2023 10:46 AM CDT 07/25/2023 10:48 AM CDT us Eli Marinelli MD SEND OUTS Final Result Performing Organization Address City/[facility]/ZIP Co de Phone Number [facility] [address] [place] [address], [place] * ANTI HIV 1/2 [03645.0] (07/25/2023 10:46 AM CDT) HIV-1/HIV-2 SCREEN Non-Reacti ve Non-Reacti ve 07/26/2023 1:02 AM CDT [facility] Comment:HIV-1 p24 and HIV-1/ HIV-2 Ab Not Detected. Blood BLOOD SPECIMEN / Unknown Venipuncture / Unknown 07/25/2023 10:46 AM CDT 07/25/2023 10:48 AM CDT us Eli Marinelli MD SEND OUTS Final Result Performing Organization Address City/[facility] Co de Phone Number [facility] [address] [place] [phone], from Last 3 Months or Most Recently Relevant to Health Maintenance Insurance [place] [id number] Advance Directives * Full Code (Latest Code Status on File) Date Activated Date Inactivated Comments 11/25/2021 3:49 AM 11/26/2021 2:38 PM Question Answer Comments Code Status Discussion: Reviewed Preferences Care Teams Finish Sander Relationship Specialty Start Date End Date Eli Marinelli MD [address] [facility] [place] [address] PCP - General Family Practice 07/25/23
--- OUTSIDE RECORDS SUMMARY | 2024-11-25 20:24 | XMS_ITS | Clinical Summary ---
Author Organization [facility] Address [address] [place] [address] Care Team Providers Care Teacher Dramatics Name Role Phone None, None M.D. Unavailable Unavailable Pcp, Relocated M.D. Primary Care Provider Brit amezquita Allergies Active Allergy Reactions Criticality Noted Date Comments Penicillins Rash 08/21/2015 Nuts Blisters,Edema 10/18/2015 Mouth and lips swelling Medications Cholecalciferol (VITAMIN D3) 5000 UNITS TABS Take 1 tablet by mouth once daily. 0 5 Active ranitidine (ZANTAC) 150 MG capsule Take 1 capsule by mouth twice daily. 60 capsule 11 5 Active acetaminophen (TYLENOL) 500 MG tablet As needed 6 Active gabapentin (NEURONTIN) 100 MG capsuleIndications :Multiple Sclerosis Take 3 capsules by mouth at bedtime. 90 capsule 2 6 Active traMADol (ULTRAM) 50 MG tabletIndications: Frequent headaches Take 1 tablet by mouth every 8 hours as needed for Pain. 60 tablet 0 6 Active zolpidem (AMBIEN) 5 MG tabletIndications: Sleeping difficulties Take 1 tablet by mouth at bedtime as needed for Sleep. 30 tablet 0 6 Active Norelgestromin-Eth Estradiol (ORTHO EVRA) 150-35 MCG/24HRIndication s:Surveillance for control, oral contraceptives Place patch on upper arm lower abdomen or upper outer thigh once weekly x 3 weeks then no patch 4th week. 9 patch 3 6 Active benzoyl peroxide 5 % gel Apply topically at bedtime. 3 bottle 1 7 Active clindamycin (CLINDAGEL) 1 % gel Apply topically twice daily. 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 Frequent headaches 10/04/2015 Pre-syncope 09/26/2015 Surveillance for control, oral contracepti ves 09/01/2015 Resolved Problems Problem Noted Date Diagnosed Date Resolved Date Demyelinating disease ([facility]) 10/13/2015 05/21/2016 Immunizations Name Administration Dates Next Due DTP-Hib 1995,1995 Oral Polio Vaccine 1995,1995 Family History Medical History Relation Comments Cancer Maternal Grandfather Colon Relation Status Comments Father Alive Maternal Grandfather Mother Alive Social History Tobacco Use Types Packs/Day Years Used Date Smoking Tobacco: Former Cigarettes 0.2 1 Tobacco Cessation:Counseling Given: Yes Alcohol Use Standard Drinks/Week Comments Yes 0.8 (1 standard drink = 0.6 oz p ure alcohol) occ Comments No Sex and Gender Information Value Date Recorded Sex Assigned at Not on file Legal Sex Female 5:03 AM CDT Gender Identity Not on file Sexual Orientation Not on file Last Filed Vital Signs Vital Sign Reading Time Taken Comments Blood Pressure 116/68 03/07/2017 11:20 AM CDT Pulse 94 03/07/2017 11:20 AM CDT Temperature 37.2 C (98.9 F) 03/07/2017 11:20 AM CDT Respiratory Rate 14 09/05/2016 7:55 PM CDT Oxygen Saturation 96% 03/07/2017 11:20 AM CDT Inhaled Oxygen Concentration - - Weight 65.4 kg (144 lb 3.2 oz) 03/07/2017 11:20 AM CDT Height 185.4 cm (6' 1) 05/21/2016 10:07 AM CDT Body Mass Index 19.02 05/21/2016 10:07 AM CDT Plan of Treatment Health Maintenance Due Date Last Done Comments HEPATITIS C SCREENING 2013 DTaP,Tdap,and Td Vaccines (3 - Tdap) 2014 1995, 1995 HEPATITIS B VACCINES (1 of 3 - 19+ 3-dose series) 2014 PAP SMEAR 03/07/2020 03/07/2017 COVID-19 Vaccine ( - 2023-2 5 season) 2024 INFLUENZA (SEASONAL) (#1) 2024 PNEUMOCOCCAL SERIES 0-64 YEARS Aged Out No longer eligible b ased on patient's age to complete this topic Procedures Procedure Name Priority Date/Time Associated Diagnosis Comments THIN PREP PAP/HPV TESTING - NON-MEDICARE Routine 03/07/2017 12:00 AM CDT Encounter for routine gynecological examination from Last 3 Months or Most Recently Relevant to Health Maintenance Results * CLINIC THIN PREP PAP W REFLEX (03/07/2017 12:00 AM CDT) Narrative Procedure Note Jennifer Hartman TECH - 03/13/2017 9:51 AM CDT FACILITY: [facility] PATIENT: PRIMITIVO MIMS DATE OF : 1995 AGE/SEX: 21/F MED. REC. NO.: [id number] / [id number] ATTD. PHYSICIAN: Piedad Eagle PA-C COLLECTION DATE: 03/07/2017 RECEIVED DATE: 03/08/2017 CASE: [id number] Specimen Source/Type: Cervical Specimen Submitted: A) ThinPrep vial received for Imaging-DirectedCytology CLINICAL HISTORY: LMP: 03/01/2017; Contraceptives; Routine Pap Smear Specimen Adequacy: Satisfactory for evaluation, endocervical/transformation zone componentsare absent. DIAGNOSIS: Negative for intraepithelial lesion or malignancy. Shift in zoey suggestive of bacterial vaginosis. Interpretation performed by Jennifer KUMAR(ASCP). Electronicallysigned 03/13/2017 6:50:31AM NEWSPAPER COPY EDITOR The Pap test is a screening test for cervical cancer and its precursors.As a screening test it has an inherent false negative and false positiverate. Regular Pap tests should be used in conjunction with otherestablished clinical practices in evaluating patients for cervicaldisease. If the results of this Pap test do not correlate with theclinical impression or do not explain the patient's clinicalsigns/symptoms, additional studies would be warranted. It is not ascreening test for detecting endometrial pathology. [facility] [place] [address], [address] [place] [address] Piedad Eagle PA-C PATHOLOGY Final Res ult from Last 3 Months or Most Recently Relevant to Health Maintenance Insurance * Guarantor: Primitivo Mims Account Type Relation to Patient Date of Phone Billing Address Personal/Family Self 1995 [id number] MEDICAID Advance Directives For more information, please contact: [phone] * Full Code (Latest Code Status on File) Date Activated Date Inactivated Comments 09/26/2015 6:14 PM 09/27/2015 9:39 PM * Full Code Date Activated Date Inactivated Comments 08/22/2015 4:57 AM 08/24/2015 4:20 PM Care Teams Teacher Dramatics Relationship Specialty Start Date End Date Kamaljit Casillas M.D. PCP - General 06/10/17 None, Yolanda Dietrich [place] 08/21/15
[2024-11-25 20:34] VITALS: BP 119/78; PULSE 109; RESP 20; TEMP 36.7; O2SAT 100; BMI 20.3
[2024-11-25 21:33] LABS: PCR FLU A POSITIVE PCR FLU A (Negative); PCR FLU B Negative PCR FLU B (Negative); PCR RSV Negative PCR RSV (Negative); SARS PCR* Negative SARS-CoV-2 (Negative)
--- NOTE | 2024-11-25 21:38 | ED_ITS ---
HPI - General Adult General Date Seen: 11/25/24 Chief complaint: Unspecified Complaint, Adult Stated complaint: chest pain, difficulty breathing Time Seen by Provider: 11/25/24 21:37 History of Present Illness HPI narrative: 29-year-old female presenting to the ER today with concern for chest pain and difficulty breathing. She is currently 7 week and is also on medications for multiple sclerosis. She has a history of a PE in the past (had been treated with several months of anticoagulation, but. Meds on her doctor's advice and has been off anticoagulation for several years. Sounds like clot was triggered by COVID. Per triage note she has been recently exposed RSV. She is having cough today and feel short of breath. She has been sick with respiratory illness for a couple of months but then had a change in her symptoms over the weekend. She had worsening cough on Saturday and Saturday and then beginning 2 days ago on Saturday also developed fever, chills, chest tightness. Today she is also developing some pain in her right lateral ribcage. She has had trouble with nausea throughout her and because of her MS. That nausea has also gotten worse over the past couple of days. She has had lot of nausea and several episodes of nonbloody emesis. She has not experienced any vaginal bleeding or pelvic cramping. No swelling in her legs. No rash on her chest. Related Data Previous Rx's ?Medication ?Instructions ?Recorded ondansetron 4 mg disintegrating 4 mg PO TID PRN nausea and 11/25/24 tablet vomiting #10 tabs Allergies Allergy/AdvReac Type Severity Reaction Status Date / Time Penicillins Allergy Mild Hives Verified 11/25/24 20:39 walnut Allergy Mild Blister Verified 11/25/24 20:40 [facility] Medical History (Updated 11/26/24 @ 00:09 by Lincoln Miguel RN) Multiple sclerosis ?G35 - Multiple sclerosis (ICD-10) Social History Smoking Status: Never smoker Second hand tobacco smoke exposure: No How often do you have a drink containing alcohol: never AUDIT-C Alcohol total score: 0 Non-prescribed substance use: denies use Exam Narrative: Exam Narrative: Constitutional: Appears well-developed and well-nourished. Alert. Conversant. Somewhat shaky, possibly shivering from fever. attentively at her side. HENT: Head: Atraumatic. Nose: Nose normal. Mouth/Throat: Oral mucosa is clear but dry, not desiccated a crack. no trismus. Pharynx normal. Tonsils symmetric. No tonsillar enlargement, erythema, or exudate. Eyes: Conjunctivae normal. EOM normal. Pupils equal, round, and reactive to ligh t. No scleral icterus. Neck: Normal range of motion. Neck supple. No tracheal deviation present. Cardiovascular: Normal rate, regular rhythm. No gallop. No friction rub. No murmur heard. Symmetric radial artery pulses . No JVD Pulmonary/Chest: Effort normal. No stridor. No respiratory distress. No wheezes. No rales. No rhonchi . No tenderness. Abdominal: Soft. Bowel sounds normal. No distension. No mass. No tenderness. No rebound. No guarding. Musculoskeletal: RUE: Normal range of motion. No tenderness. No deformity LUE: Normal range of motion. No tenderness. No deformity RLE: Normal range of motion. No edema. No tenderness. No deformity LLE: Normal range of motion. No edema. No tenderness. No deformity Neurological: Alert and oriented to person, place, and time. Normal strength. CN II-VII intact. No sensory deficit. GCS eye subscore is 4. GCS verbal subscore is 5. GCS motor subscore is 6. Normal coordination Skin: Skin is warm and dry. No rash noted. No pallor. Normal capillary refill. Psychiatric: Normal mood. Normal affect. Const: Vital Signs, click to edit/add: Vital Signs - 24 hr 11/25/24 20:34 11/25/24 22:00 11/25/24 22:04 Temperature 98.1 F 98.1 F Pulse Rate [Pulse Oximeter] 109 H Respiratory Rate 20 Blood Pressure [Ri ght Upper Arm] 119/78 Pulse Oximetry 100 100 Oxygen Delivery Me thod Room Air 11/25/24 23:00 11/25/24 23:00 11/26/24 00:16 Temperature 98.1 F 98.1 F 98.1 F Pulse Rate [Pulse Oximeter] 90 90 Respiratory Rate 20 20 Blood Pressure [Ri ght Upper Arm] 121/74 121/74 Pulse Oximetry 100 Oxygen Delivery Me thod Room Air Course Course ED Course: Feeling better after IV fluids. Vital Signs Vital signs: Initial Vital Signs Temperature 98.1 F 01/15/25 20:34 Temperature Source Temporal Artery Scan 11/25/24 20:34 Pulse Rate 109 H 11/25/24 20:34 Pulse Rhythm Regular 11/25/24 20:34 Respiratory Rate 20 11/25/24 20:34 Blood Pressure 119/78 11/25/24 20:34 Blood Pressure Mean 91 11/25/24 20:34 Blood Pressure Position Sitting 11/25/24 20:34 Pulse Oximetry 100 11/25/24 20:34 Oxygen Delivery Method Room Air 11/25/24 20:34 Vital Signs Temperature 98.1 F 11/25/24 20:34 Pulse Rate 109 H 11/25/24 20:34 Respiratory Rate 20 11/25/24 20:34 Blood Pressure 119/78 11/25/24 20:34 Pulse Oximetry 100 11/25/24 20:34 Oxygen Delivery Method Room Air 11/25/24 20:34 Temperature 98.1 F 11/26/24 00:16 Pulse Rate 90 11/26/24 00:16 Respiratory Rate 20 11/26/24 00:16 Blood Pressure 121/74 11/26/24 00:16 Pulse Oximetry 100 11/25/24 23:00 Oxygen Delivery Method Room Air 11/25/24 23:00 Medications Administered Medications: Discontinued Medications Generic Name Dose Route Start Last Admin Trade Name Lanceq PRN Reason Stop Dose Admin Acetaminophen 1,000 mg 11/25/24 21:54 11/25/24 22:04 Acetaminophen 500 Mg Tablet PO 11/25/24 21:55 1,000 mg ONCE ONE Administration Sodium Chloride 1,000 mls @ 1,000 mls/hr 11/25/24 22:00 11/25/24 23:01 0.9 % Sodium Chloride 1000 Ml IV 11/25/24 22:59 Infused .Q1H ABRAM Infusion Sodium Chloride 500 mls @ 500 mls/hr 11/25/24 23:17 11/25/24 23:55 0.9 % Sodium Chloride 500 Ml IV 11/26/24 00:16 Infused .Q1H ONE Infusion Ondansetron HCl 4 mg 11/25/24 21:54 11/25/24 22:04 Ondansetron 2 Mg/Ml Inj IVP 11/25/24 21:55 4 mg ONCE ONE Administration Medical Decision Making MDM Narrative Medical decision making narrative: Pleasant 29-year-old female with a complex past medical history including 1st trimester (7 weeks) history of MS, on immunosuppressant medications, and distant history of provoked PE. She presents to the ER today with symptoms of cough, fever, body aches, chest pain, shortness of breath. She had had a chronic cough illness for a couple of months but then got worse over the weekend. She is positive for influenza A. I suspect this is probably triggering most of her worsening symptoms. Discussed treatment for influenza and the patient politely declines Tamiflu. With her chest pain, Differential was broad. No evidence of palpitations, syncope or other cardiac dysrhythmia. We considered possible ACS, however workup with EKG and troponin is negative. Given time since onset of symptoms, I do not think the patient needs to be admitted for further sets of enzymes. EKG shows no evidence for pericarditis. Clinical presentation not suggestive of myocarditis. Chest x-ray shows no evidence for pneumonia, pneumothorax, pulmonary edema, pleural effusion, rib fracture, cardiomegaly. Mediastinum is normal on the x-ray. The patient has no ripping or tearing pain through to the back and has symmetric pulses on exam, no other acute neuro findings so I doubt aortic dissection. Risk of radiation and contrast exposure would outweigh the benefit of CT angiogram. We considered PE for this patient. Although she has a history of a PE provoked by COVID, overall is low risk today. She is tachycardic and and therefore cannot be ruled out by PERC. Screening D-dimer is normal. Therefore, the risk of radiation exposure from chest CT would outweigh the benefit. Will hold off. No wheezing or bronchospasm to suggest COPD/asthma. No signs of chest wall cellulitis, shingles, injury. We suspect that her chest pain is probably due to lung inflammation from COVID or possibly pulled muscles from coughing. She is feeling better after fluids and she is reassured by the workup. She and her are eager for discharge to home. With reasonable clinical confidence, I think the patient is safe for outpatient follow up. Discussed return precautions. Questions answered. Patient voices comfort with the plan. Lab Data Labs: Lab Results 11/25/24 11/25/24 11/25/24 Range/Units 20:41 21:54 22:00 WBC 5.20 (4.50-11.00) K/uL RBC 4.37 (4.00-5.20) m/uL Hgb 12.3 (12.0-16.0) gm/dL Hct 37.5 (33.0-51.0) % MCV 86 (80-100) fL MCH 28 (26-34) pg MCHC 33 (32-36) gm/dL RDW Coeff of Rohan 13.8 (11.5-15.5) % Plt Count 201 (140-440) K/uL Neut % (Auto) 77.1 H (42.0-72.0) % Lymph % (Auto) 11.7 L (20-44) % Sevier % (Auto) 9.8 (0.0-11.0) % Eos % (Auto) 0.4 (0.0-7.0) % Baso % (Auto) 0.2 (0.0-3.0) % Neut # (Auto) 4.00 (1.7-7.0) K/uL Lymph # (Auto) 0.60 L (0.90-2.90) K/uL Sevier # (Auto) 0.50 (0.00-0.90) K/UL Eos # (Auto) 0.02 (0.00-0.50) K/uL Baso # (Auto) 0.01 (0.00-0.30) K/uL Abs Immat Gran (auto) 0.04 (0.00-0.30) K/uL Imm/Tot Granulo (auto) 0.8 % D-Dimer Quant (PE/DVT) 0.23 (0.00-0.50) ug/ml Sodium 136 (135-149) mmol/L Potassium 3.9 (3.6-5.1) mmol/L Chloride 106 (96-114) mmol/L Carbon Dioxide 20 (20-32) mmol/L Anion Gap 10 (7-15) mEq/L BUN 8 (5-24) mg/dL Creatinine 0.5 (0.5-1.5) mg/dL Estimated Creat Clear 178.32 Estimated GFR 130 ml/min Glucose 98 (60-115) mg/dL Calcium 8.8 (8.4-10.6) mg/dL SARS-CoV-2 (PCR) Negative SARS-CoV-2 (Negative) Influenza Type A (PCR) POSITIVE PCR FLU A A (Negative) Influenza Type B (PCR) Negative PCR FLU B (Negative) RSV (PCR) Negative PCR RSV (Negative) POC Troponin I 0.00 L (0.01-0.04) ng/ml Discharge Plan Discharge Clinical Impression: Influenza A, Chest pain, Nausea & vomiting Patient Disposition: Home, Self-Care Instructions: Chest Pain (DC), Influenza (DC) Prescriptions: New ondansetron 4 mg tablet,disintegrating 4 mg PO TID PRN (Reason: nausea and vomiting) Qty: 10 0RF Follow Up/Referrals: Provider,Not a Local [Non-Staff] - Stand Alone Forms: MyHealth Info Instructions
--- NOTE | 2024-11-25 21:54 | CRLHL7_ITS ---
For Patients: As a result of the Century Cures Act, medical imaging exams and procedure reports are released immediately into your electronic medical record. You may view this report before your referring provider. If you have questions, please contact your health care provider. INDICATION: Chest pain. TECHNIQUE: Chest 2 views. COMPARISON: None. FINDINGS: Cardiovascular and mediastinum: Heart size and vasculature are normal in caliber and appearance. Lungs and pleural spaces: Lungs are clear. No sign of infiltrate or mass. No sign of pleural effusion. No pneumothorax. Bones and soft tissues: No significant findings. IMPRESSION: No acute or significant findings. Dictated by Sreedhar Murry MD @ 11/25/2024 11:22:32 PM (Electronically Signed)
[2024-11-25 22:00] VITALS: O2SAT 100
[2024-11-25] MEDS: 0.9 % SODIUM CHLORIDE 1000 ml 1,000 ML IV (22:03)
[2024-11-25 22:04] VITALS: TEMP 36.7
[2024-11-25] MEDS: ACETAMINOPHEN 500 MG TABLET 1000 MG PO (22:04)
[2024-11-25] MEDS: ONDANSETRON 2 MG/ML inj 4 MG IVP (22:04)
--- OUTSIDE RECORDS SUMMARY | 2024-11-25 22:13 | XMS_ITS | Clinical Summary ---
Author Organization [facility] Address [address] [place] [address] Care Team Providers Care Plastic Surgery Technician Name Role Phone Leslee Stacy PA-C Unavailable Glendy Perry MD Unavailable [phone] Eli Marinelli MD Primary Care Provider Allergies Active Allergy Reactions Criticality Noted Date [...] of MRI if needed. Will need a front load trash truck driver. 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 was on medications for ? [...] Department Care Team Description 11/19/2024 3:00 PM HOBBING PRESS OPERATOR Office Visit [facility] Neurology [address] [phone] Glendy Perry MD Multiple sclerosis (HCC) (Primary [...] Sex Assigned at Female 11/30/2021 10:02 AM HOBBING PRESS OPERATOR Legal Sex Female 9:11 AM HOBBING PRESS OPERATOR Gender Identity Female 11/30/2021 10:02 AM HOBBING PRESS OPERATOR Sexual Orientation Straight 11/30/2021 10 :02 AM HOBBING PRESS OPERATOR Last Filed Vital Signs Vital Sign Reading Time Taken Comments Blood Pressure 96/61 11/19/2024 3:09 PM HOBBING PRESS OPERATOR Pulse 76 11/19/2024 3:09 PM HOBBING PRESS OPERATOR Temperature 36.2 C (97.1 F) 07/24/2024 2:11 [...] HCV ANTIBODY ([facility]) Routine 12/08/2021 1:57 PM HOBBING PRESS OPERATOR Drug therapy from Last 3 Months or Most Recently Relevant to Health Maintenance Results * HCV ANTIBODY ([facility]) (12/08/2021 1:57 PM HOBBING PRESS OPERATOR) Hepatitis C Virus Antibody ([facility]) <0.1 0.0 - 0.9 s/co ratio [facility] 1 Comment: Negative: < 0.8 Indeterminate: 0.8 - 0.9 Positive: > 0.9 The CDC recommends that a positive HCV antibody result be followed up with a HCV Nucleic Acid Amplification test ([id number]). Blood 12/08/2021 1:57 PM HOBBING PRESS OPERATOR 12/07/2021 11:00 PM HOBBING PRESS OPERATOR Narrative [facility] 1 - 12/11/2021 7:07 PM HOBBING PRESS OPERATOR Performed at: - [facility] [place] [id number] [place], [place] [id number] Tare Man: Luis Alfredo Tabor MD, Phone: [phone] Glendy Perry MD [facility] ORDERABLES Final Resu lt [facility] 1 from Last 3 Months or Most Recently Relevant to Health Maintenance Insurance [employer] Care Teams Plastic Surgery Technician Relationship Specialty Start Date End Date Eli Marinelli MD [address] [facility] [place] [address] PCP - General 10/15/23 Leslee Stacy PA-C Physician Panel Machine Operator Neurology 12/08/21 Glendy Perry MD Physician Panel Machine Operator Neurology 12/08/21
--- OUTSIDE RECORDS SUMMARY | 2024-11-25 22:13 | XMS_ITS | Referral Summary ---
Author Organization [facility] Address [address] [place] [id number] Care Team Providers Care Operater Name Role Phone Leslee Stacy PA-C Unavailable Glendy Perry MD Unavailable Eli Marinelli MD Primary Care Provider Encounters Date Type Department Care Team Description 11/19/2024 3:00 PM DYED YARN OPERATOR Office Visit [facility] Neurology [address] [phone] Glendy Perry MD Multiple sclerosis (HCC) (Primary [...] of MRI if needed. Will need a boom truck driver. 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 was on medications for ? [...] Sex Assigned at Female 11/30/2021 10:02 AM DYED YARN OPERATOR Legal Sex Female 9:11 AM DYED YARN OPERATOR Gender Identity Female 11/30/2021 10:02 AM DYED YARN OPERATOR Sexual Orientation Straight 11/30/2021 10 :02 AM DYED YARN OPERATOR Last Filed Vital Signs Vital Sign Reading Time Taken Comments Blood Pressure 96/61 11/19/2024 3:09 PM DYED YARN OPERATOR Pulse 76 11/19/2024 3:09 PM DYED YARN OPERATOR Temperature 36.2 C (97.1 F) 07/24/2024 [...] HCV ANTIBODY ([facility]) Routine 12/08/2021 1:57 PM DYED YARN OPERATOR Drug therapy from Last 3 Months or Most Recently Relevant to Health Maintenance Results * HCV ANTIBODY ([facility]) (12/08/2021 1:57 PM DYED YARN OPERATOR) Hepatitis C Virus Antibody ([facility]) <0.1 0.0 - 0.9 s/co ratio [facility] 1 Comment: Negative: < 0.8 Indeterminate: 0.8 - 0.9 Positive: > 0.9 The CDC recommends that a positive HCV antibody result be followed up with a HCV Nucleic Acid Amplification test ([id number]). Blood 12/08/2021 1:57 PM DYED YARN OPERATOR 12/07/2021 11:00 PM DYED YARN OPERATOR Narrative [facility] 1 - 12/11/2021 7:07 PM DYED YARN OPERATOR Performed at: - [facility] [place] [address] [place] [id number] Rental Representative: Luis Alfredo Tabor MD, Phone: [phone] us Glendy Perry MD [facility] ORDERABLES Final Resu lt [facility] 1 from Last 3 Months or Most Recently Relevant to Health Maintenance Insurance [employer] Member Subscriber Plan / Payer (Ef fective 2024-Present) Name:Primitivo Killian Relation to Subscriber:Self Name:Primitivo Killian Payer ID:Not on file Group ID:[id number] Type:Non-Contract Address: [place] [id number] [employer] Care Teams Operater Relationship Specialty Start Date End Date Eli Marinelli MD [address] [place] [address] VAHID LARSON [id number] PCP - General 10/15/23 Leslee Stacy PA-C Physician Jewelry Sales Coordinator Neurology 12/08/21 Glendy Perry MD Physician Jewelry Sales Coordinator Neurology 12/08/21
--- OUTSIDE RECORDS SUMMARY | 2024-11-25 22:13 | XMS_ITS | Encounter Summary ---
Author Organization [facility] Address [address] [place] [id number] Care Team Providers Care Pyridine Operator Name Role Phone Leslee Stacy PA-C Unavailable Glendy Perry MD Unavailable [phone] Eli Marinelli MD Primary Care Provider [phone] Reason for Visit * Reason Comments Follow up Encounter Details Date Type Department Care Team (Late st Contact Info) Description 11/19/2024 3:00 PM SUPERINTENDENT METER TESTS Office Visit [facility] [address] [phone] Glendy Perry MD [address] [place] [id number] Multiple sclerosis (HCC) (Primary Dx) Social [...] Sex Assigned at Female 11/30/2021 10:02 AM SUPERINTENDENT METER TESTS Legal Sex Female 9:11 AM SUPERINTENDENT METER TESTS Gender Identity Female 11/30/2021 10:02 AM SUPERINTENDENT METER TESTS Sexual Orientation Straight 11/30/2021 10 :02 AM SUPERINTENDENT METER TESTS documented as of this encounter Last Filed Vital Signs Vital Sign Reading Time Taken Comments Blood Pressure 96/61 11/19/2024 3:09 PM SUPERINTENDENT METER TESTS Pulse 76 11/19/2024 3:09 PM SUPERINTENDENT METER TESTS Temperature - - Respiratory Rate - - Oxygen Saturation - - Inhaled Oxygen Concentration - - Weight - - Height - - Body Mass Index - - documented in this encounter Patient Instructions * Patient Instructions* Glendy Perry MD - 11/19/2024 3:00 PM SUPERINTENDENT METER TESTS .Follow up: Keep January New Medications/changes: Stop Lyrica - decrease by 75mg every 3 days Hold Migraine meds Okay to continue cyclobenzaprine and Cymbalta for now - ask Ob - Referrals: Breast feeding data handout https://www.ncbi.nlm.nih.gov/books/XSV725985/pdf/Bookshelf_NBK500903.pdf Other Recommendations: Regular exercise and healthy diet [...] you do smoke, please consider quitting/reducing use. RINTENDENT METER TESTS documented in this encounter Progress Notes * Glendy Perry MD - 11/19/2024 3:00 PM CST In the interval since her last visit, labs completed 07/07/24. Infused with Ocrevus 07/24/24, tolerated well. MRI B/C/T completed 08/21/24, MS stable. Followed with [facility] 10/23/24 for evalof cough and [...] was needing this about once a month. Thhtn-Lcqwmprwr-Nhblx Syndrome - diagnosed at - hasn't been [...] start wearing glasses. 08/2015 - Presented to [facility] ED 08/21/15 for severe headache with light [...] superior frontal gyrus. Followed with [facility] 03/09/21, continued on Copaxone. 11/2021 - Presented to [facility] ED 11/24/21 after testing positive for COVID with bilateral pulmonary embolisms with right heart strain discharged 11/26/21 with Xaralto. Presented to [facility] ED 11/30/21 forchest pain and SOB, reported [...] Encephalitis Ab 0.86 neg. West NileVirus neg. Triana Encephalitis neg. JCV 0.10 neg. 08/21/15 - [...] dated 09/21/2022. Observations include: 1. T2 Lesion [place]: Mild, stable. 2. T1 Lesion [place]: Minimal, stable. 3. Lesion Enhancement: None. 4. [...] of MRI if needed. Will need a line haul driver. diazePAM (VALIUM) 5 mg oral tablet Take one tab 30 min prior to MRI and may take 2nd tab at time ofMRI if needed DULoxetine (CYMBALTA) 60 mg oral delayed release capsule Take 1 capsule by mouth once daily ferrous sulfate (FERATAB) 325 mg (65 mg iron) oral tablet Take 1 tablet (325 mg) by mouth once daily. 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 Living - and has 3 children and [...] sclerosis) as specific within this medical record RINTENDENT METER TESTS documented in this encounter Plan of Treatment Not on file documented as of this encounter Visit Diagnoses Diagnosis Multiple sclerosis (HCC)- Primary Multiple sclerosis documented in this encounter Care Teams Pyridine Operator Relationship Specialty Start Date End Date Eli Marinelli MD [address] [place] [address] PCP - General 10/15/23 Leslee Stacy PA-C Physician Frame Wirer Neurology 12/08/21 Glendy Perry MD Physician Frame Wirer Neurology 12/08/21 documented as of this encounter
--- OUTSIDE RECORDS SUMMARY | 2024-11-25 22:13 | XMS_ITS | Clinical Summary ---
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 was on medications for ? [...] Department Care Team Description 11/25/2024 6:40 PM SIGNALING DESIGN ENGINEER Office Visit [facility] [address] [place] [phone] Diana Jordan NP Cough (Coughing until vomiting) 11/25/2024 Travel 10/23/2024 10:05 AM SIGNALING DESIGN ENGINEER Office Visit [facility] [id number] [facility] [address] [place] [address] Yumiko Ellis MD Sinus Problem; Cough (Started [...] Sex Assigned at Female 11/30/2021 12:52 PM SIGNALING DESIGN ENGINEER Legal Sex Female 2:52 PM CDT Gender Identity Female 11/30/2021 12:52 PM SIGNALING DESIGN ENGINEER Sexual Orientation Straight 11/30/2021 12 :52 PM SIGNALING DESIGN ENGINEER Obstetrics History Para Term AB IAB SAB Ectopic Multiple Livin g Live Births 1 Date Outcome GA Total Labor Labor/2nd/3rd Weight Sex Type Anes PTL Lina A1 A5 Name Clin Current Last Filed Vital Signs Vital Sign Reading Time Taken Comments Blood Pressure 139/90 11/25/2024 7:39 PM SIGNALING DESIGN ENGINEER Pulse 108 11/25/2024 7:39 PM SIGNALING DESIGN ENGINEER Temperature 37.8 C (100.1 F) 11/25/2024 7:39 PM SIGNALING DESIGN ENGINEER Respiratory Rate 18 11/25/2024 7:39 PM SIGNALING DESIGN ENGINEER Oxygen Saturation 100% 11/25/2024 7:39 PM SIGNALING DESIGN ENGINEER Inhaled Oxygen Concentration - - Weight 71.2 kg (157 lb) 11/25/2024 7:39 PM SIGNALING DESIGN ENGINEER Height 182.9 cm (6') 08/20/2023 8:21 AM CDT Body Mass Index 21.29 08/20/2023 8:21 AM CDT Plan of Treatment Upcoming Encounters Date Type Department Care Team (Late st Contact Info) Description 12/01/2024 9:35 AM SIGNALING DESIGN ENGINEER Office Visit [facility] [address] [place] [phone] Richelle Kent MD [address] [place] [address] Health Maintenance Due Date Last Done Comments [...] 07/25/2028 , 07/25/2023, 03/31/2019 (Completed outside of [facility]) RSV vaccine for adults or pr egnancy [...] 16 Negative Negative 07/29/2023 1:53 PM CDT [facility] TYPE 18 Negative Negative 07/29/2023 1:53 PM CDT [facility] OTHER HIGH RISK TYPES Negative Negative 07/29/2023 1:53 PM CDT [facility] Other (Cervical) Non-Blood / Unknown 07/25/2023 11:55 AM CDT 07/26/2023 11:38 AM CDT Narrative [facility] - 07/29/2023 1:53 PM CDT HPV types 16, 18, 31, 33, 35, 39, 45, 51, 52, 56, 58, 59, 66 and 68 DNA were undetectable or below the pre-set threshold. Methodology: Sameer Dara 4800 HPV Test Eli Marinelli MD MICROBIOLOGY Final Result [facility] [address] [place] [address], * ANTI HCV (07/25/2023 10:46 AM CDT) HEPATITIS C ANTIBODY Non-Reacti ve Non-React ryne 07/26/2023 1:00 AM CDT [facility] Comment:Please note, per www .CDC.gov: [...] SEND OUTS Final Result Performing Organization Address City/[facility]/ZIP Co de Phone Number [facility] [address] [place] [address], [place] * ANTI HIV 1/2 [49859.0] (07/25/2023 10:46 AM CDT) HIV-1/HIV-2 SCREEN Non-Reacti ve Non-Reacti ve 07/26/2023 1:02 AM CDT [facility] Comment:HIV-1 p24 and HIV-1/ HIV-2 Ab Not Detected. Blood BLOOD SPECIMEN / Unknown Venipuncture / Unknown 07/25/2023 10:46 AM CDT 07/25/2023 10:48 AM CDT us Eli Marinelli MD SEND OUTS Final Result Performing Organization Address City/[facility] Co de Phone Number [facility] [address] [place] [address], from Last 3 Months or Most Recently Relevant to Health Maintenance Insurance [id number] Advance Directives * Full Code (Latest Code Status on File) Date Activated Date Inactivated Comments 11/25/2021 3:49 AM 11/26/2021 2:38 PM Question Answer Comments Code Status Discussion: Reviewed Preferences Care Teams Topstitcher Lockstitch Relationship Specialty Start Date End Date Eli Marinelli MD [address] [facility] [place] [address] PCP - General Family Practice 07/25/23
--- OUTSIDE RECORDS SUMMARY | 2024-11-25 22:13 | XMS_ITS | Clinical Summary ---
Author Organization [facility] Address [address] [place] [address] Care Team Providers Care Termite Treater Name Role Phone None, None M.D. 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 REC. NO.: [id number] / [id number] ATTD. PHYSICIAN: Piedad Eagle PA-C COLLECTION DATE: 03/07/2017 RECEIVED DATE: 03/08/2017 CASE: [id number] Specimen Source/Type: Cervical Specimen Submitted: A) ThinPrep vial received for Imaging-DirectedCytology CLINICAL HISTORY: LMP: 03/01/2017; Contraceptives; Routine Pap Smear Specimen Adequacy: Satisfactory for evaluation, endocervical/transformation zone componentsare absent. DIAGNOSIS: Negative for intraepithelial lesion or malignancy. Shift in zoey suggestive of bacterial vaginosis. Interpretation performed by Jennifer KUMAR(ASCP). Electronicallysigned 03/13/2017 6:50:31AM AIR BAG BUFFER The Pap test is a screening test [...] endometrial pathology. [facility] [place] [address] [facility], [address] [place] [address] Piedad Eagle PA-C PATHOLOGY Final Res ult from Last 3 Months or Most Recently Relevant to Health Maintenance Insurance * Guarantor: Primitivo Mims Account Type Relation to Patient Date of Phone Billing Address Personal/Family Self 1995 [address] MEDICAID Advance Directives For more information, please contact: [phone] * Full Code (Latest Code Status on File) Date Activated Date Inactivated Comments 09/26/2015 6:14 PM 09/27/2015 9:39 PM * Full Code Date Activated Date Inactivated Comments 08/22/2015 4:57 AM 08/24/2015 4:20 PM Care Teams Termite Treater Relationship Specialty Start Date End Date Kamaljit Casillas M.D. PCP - General 06/10/17 None, Yolanda Dietrich [place] 08/21/15
--- OUTSIDE RECORDS SUMMARY | 2024-11-25 22:14 | XMS_ITS | Encounter Summary ---
Author Organization [facility] Address [address] [place] [address] Care Team Providers Care Dye Boarding Machine Operator Name Role Phone Zane Bower D.O. Primary Care Provider None, None M.D. Unavailable Unavailable Pcp, Relocated M.D. Primary Care Provider Brit amezquita Encounter Details Date Type Department Care Team (Late st Contact Info) Description 12/26/2015 Form Completion [facility] [address] [facility] [address] [place], [place] [id number] Lynnette Bruner, N.P. [address] [facility] [address] [place], [place] [address] Social History Tobacco Use Types Packs/Day Years [...] Date Author Status No 11/18/2015 12:00 AM Brdoerick Summers Active documented in this encounter Plan of Treatment Not on file documented as of this encounter Visit Diagnoses Not on filedocumented in this encounter Care Teams Dye Boarding Machine Operator Relationship Specialty Start Date End Date Zane Bower D.O. PCP - General Family Medicine 10/04/15 06/09/17 Kamaljit Casillas M.D. PCP - General 06/10/17 None, Yolanda Dietrich 08/21/15 documented as of this encounter
[2024-11-25 22:32] LABS: Chloride* 106 mmol/L (96-114); Potassium* 3.9 mmol/L (3.6-5.1); Sodium* 136 mmol/L (135-149)
[2024-11-25 22:35] LABS: Anion Gap 10 mEq/L (7-15); Blood Urea Nitrogen* 8 mg/dL (5-24); Carbon Dioxide* 20 mmol/L (20-32); Creatinine* 0.5 mg/dL (0.5-1.5); Est. Creatinine Clearance* 178.32; Estimated Glomerular Filt Rate 130 ml/min; Glucose* 98 mg/dL (60-115)
[2024-11-25 22:36] LABS: Calcium* 8.8 mg/dL (8.4-10.6)
[2024-11-25 22:54] LABS: D Dimer Quantitative* 0.23 ug/ml (0.00-0.50)
[2024-11-25 23:00] VITALS: BP 121/74; PULSE 90; RESP 20; TEMP 36.7; O2SAT 100
[2024-11-25 23:02] LABS: Basophils Absolute Auto 0.01 K/uL (0.00-0.30); Basophils Percent Auto 0.2 % (0.0-3.0); Eosinophils Absolute Auto 0.02 K/uL (0.00-0.50); Eosinophils Percent Auto 0.4 % (0.0-7.0); Hematocrit 37.5 % (33.0-51.0); Hemoglobin* 12.3 gm/dL (12.0-16.0); Immature Granulocytes Abs Auto 0.04 K/uL (0.00-0.30); Immature Granulocytes Pct Auto 0.8 %; Lymphocytes Percent Auto 11.7 % (20-44); Mean Corpuscular HGB Conc 33 gm/dL (32-36); Mean Corpuscular Hemoglobin 28 pg (26-34); Mean Corpuscular Volume 86 fL (80-100); Monocytes Percent Auto 9.8 % (0.0-11.0); Neutrophils Percent Auto 77.1 % (42.0-72.0); Platelet Count* 201 K/uL (140-440); RDW Coefficient of Variation % 13.8 % (11.5-15.5); Red Blood Count 4.37 m/uL (4.00-5.20)
[2024-11-25 23:09] LABS: Slide Review Reflex No
[2024-11-25] MEDS: 0.9 % SODIUM CHLORIDE 500 ML 500 ML IV (23:10)
[2024-11-26 00:16] VITALS: BP 121/74; PULSE 90; RESP 20; TEMP 36.7
== END 2024-11-26 00:16 | disposition home or self-care (01) ==
PROVIDERS: Emergency Provider Emergency Medicine; PCP Family Medicine
DX: J10.2 Influenza due to other identified influenza virus with gastrointestinal manifestations (principal); R07.9 Chest pain, unspecified; Z33.1 Pregnant state, incidental
CPT/HCPCS: 36415; 71046; 80048; 84484; 85025; 85379; 87631; 93005; 94761; 96361; 96374; 99284; 99285; A9270; J2405; J7030